=== PATIENT | male | born 1935 | race Caucasian/White ===

== ENCOUNTER 2016-11-26 07:51 | Observation (INO) | payer OTHER ==
[~2016-11-26] VITALS: Ht 175.3 cm; Wt 68.4 kg
[2016-11-26 08:29] LABS: BASOPHIL COUNT 0.1 K/uL (0-0.1); EOSINOPHIL (%) 4.9 % (0-5); EOSINOPHIL COUNT 0.4 K/uL (0-0.3); HEMATOCRIT 44.1 % (38.0-50.0); IMMATURE GRANULOCYTE (%) 0.3 % (0.0-0.7); INSTRUMENT ABS NEUTROPHIL CT 4.3 K/uL; LYMPHOCYTE COUNT 2.1 K/uL (1.0-2.8); MCH 32.2 PG (29.0-34.0); MCHC 33.1 G/DL (30.0-36.0); MCV 97.1 FL (86-99); MEAN PLAT.VOLUME 9.4 uM^3 (9.0-12.4); MONOCYTE (%) 7.6 % (3-12); MONOCYTE COUNT 0.6 K/uL (0-0.8); NEUTROPHIL (%) 58.5 % (45-76); NEUTROPHIL COUNT 4.3 K/uL (1.8-6.4); PLATELET COUNT 198 K/uL (156-360); RBC DIS.WIDTH-CV 12.5 % (11.8-14.6); RBC DIS.WIDTH-SD 44.9 % (39-53); RED BLOOD COUNT 4.54 M/uL (4.00-5.50); WHITE BLOOD COUNT 7.4 K/uL (4.1-10.2)
[2016-11-26] MEDS ORDERED: SINEMET 25-1001 EACH PO (08:39)
[2016-11-26] MEDS ORDERED: MULTI-DAY VITA1 EACH PO (08:40)
[2016-11-26 08:42] LABS: CHLORIDE 109 mEq/L (99-109); POTASSIUM 4.3 mEq/L (3.7-5.4); SODIUM 143 mEq/L (136-147)
[2016-11-26 08:44] LABS: GLUCOSE 95 mg/dL (70-99)
[2016-11-26 08:45] LABS: ANION GAP 8 MEQ/L (2-14)
[2016-11-26 08:48] LABS: GFR ESTIMATE (CALCULATED) > 59 mL/min/
[2016-11-26 08:49] LABS: UREA NITROGEN (BUN) 16 mg/dL (9-23)
[2016-11-26 08:55] LABS: TROP-I INTERPRETATION NEGATIVE; TROPONIN-I < 0.01 ng/mL (0.0-0.30)
[2016-11-26 11:20] VITALS: BP 137/71
[2016-11-26 15:22] LABS: TROP-I INTERPRETATION NEGATIVE; TROPONIN-I < 0.01 ng/mL (0.0-0.30)
[2016-11-26 16:09] VITALS: BP 132/64
[2016-11-26 19:43] VITALS: BP 115/58
[2016-11-26 19:50] VITALS: BP 144/60
[2016-11-26 19:51] VITALS: BP 116/59
[2016-11-26 22:00] LABS: TROP-I INTERPRETATION NEGATIVE; TROPONIN-I < 0.01 ng/mL (0.0-0.30)
[2016-11-27] VITALS: BP 113/60
[2016-11-27 04:00] VITALS: BP 128/60
[2016-11-27 05:57] LABS: ALKALINE PHOSPHATASE 51 IU/L (3-129); ANION GAP 6 MEQ/L (2-14); CHLORIDE 107 MEQ/L (99-109); DIRECT BILIRUBIN 0.2 mg/dL (0.0-0.3); GFR ESTIMATE (CALCULATED) > 59 mL/min/; GLUCOSE 85 mg/dL (70-99); POTASSIUM 3.8 MEQ/L (3.7-5.4); SAMPLE HEMOLYSIS CHECK 0; SAMPLE ICTERIC CHECK 0; SAMPLE LIPEMIA CHECK 0; SODIUM 137 MEQ/L (136-147); TOTAL BILIRUBIN 1.2 MG/DL (0.0-1.0); UREA NITROGEN (BUN) 18 mg/dL (9-23)
[2016-11-27 06:20] LABS: BASOPHIL COUNT 0.1 K/uL (0-0.1); EOSINOPHIL (%) 5.9 % (0-5); EOSINOPHIL COUNT 0.4 K/uL (0-0.3); HEMATOCRIT 38.2 % (38.0-50.0); IMMATURE GRANULOCYTE (%) 0.2 % (0.0-0.7); INSTRUMENT ABS NEUTROPHIL CT 2.6 K/uL; LYMPHOCYTE COUNT 2.8 K/uL (1.0-2.8); MCH 31.6 PG (29.0-34.0); MCHC 32.2 G/DL (30.0-36.0); MCV 98.2 FL (86-99); MEAN PLAT.VOLUME 10.1 uM^3 (9.0-12.4); MONOCYTE (%) 9.5 % (3-12); MONOCYTE COUNT 0.6 K/uL (0-0.8); NEUTROPHIL (%) 39.7 % (45-76); NEUTROPHIL COUNT 2.6 K/uL (1.8-6.4); PLATELET COUNT 179 K/uL (156-360); RBC DIS.WIDTH-CV 12.6 % (11.8-14.6); RED BLOOD COUNT 3.89 M/uL (4.00-5.50); WHITE BLOOD COUNT 6.4 K/uL (4.1-10.2)
[2016-11-27 08:22] VITALS: BP 142/66
[2016-11-27 11:48] VITALS: BP 171/72
[2016-11-27] MEDS ORDERED: LO-DOSE ASPIRIN81 M2 PO (12:50)
== END 2016-11-27 13:49 | disposition home or self-care (01) ==
LOC: EME 07:51 → EDOF 10:11 → 5WEST 11:16
PROVIDERS: Emergency Medicine; Nurse Practitioner Adult Health
DX: R55 Syncope and collapse (principal); R00.1 Bradycardia, unspecified; R42 Dizziness and giddiness; Z87.891 Personal history of nicotine dependence; J45.909 Unspecified asthma, uncomplicated; I48.0 Paroxysmal atrial fibrillation; Z79.01 Long term (current) use of anticoagulants; G20 Parkinson's disease
CPT/HCPCS: 70450; 71010; 80048; 80076; 84484; 85025; 93005; 99281; 99285; G0378; J1644; J7030; J7040

== ENCOUNTER 2017-01-20 10:11 | Day surgery (SDC) | payer OTHER ==
[~2017-01-20] VITALS: Ht 175.3 cm; Wt 68.0 kg
[~2017-01-20 10:11] MED LIST: LO-DOSE ASPIRIN81 M2 PO; MULTI-DAY VITA1 EACH PO; SINEMET 25-1001 EACH PO
== END 2017-01-20 17:40 | disposition home or self-care (01) ==
LOC: CATH 10:11
PROC: 4A023FZ Measurement of Cardiac Rhythm, Percutaneous Approach (ICD-10-PCS; principal; 2017-01-20)
PROC: 4A0234Z Measurement of Cardiac Electrical Activity, Percutaneous Approach (ICD-10-PCS; principal; 2017-01-20)
DX: I44.0 Atrioventricular block, first degree (principal); R55 Syncope and collapse; I44.1 Atrioventricular block, second degree; I34.0 Nonrheumatic mitral (valve) insufficiency; I71.2 Thoracic aortic aneurysm, without rupture; Z79.82 Long term (current) use of aspirin; Z87.891 Personal history of nicotine dependence
CPT/HCPCS: C1730; C1766; C1894; J1200; J2250; J3010; S0020

== ENCOUNTER 2017-11-22 20:28 | Emergency (ER) | payer OTHER ==
[~2017-11-22] VITALS: Ht 175.3 cm; Wt 55.0 kg
[2017-11-22 20:59] LABS: HEMOGLOBIN 13.9 G/DL (12.5-16.6); MCH 32.4 PG (29.0-34.0); MCHC 33.9 G/DL (30.0-36.0); MCV 95.6 FL (86-99); PLATELET COUNT 148 K/uL (156-360); RBC DIS.WIDTH-SD 45.3 % (39-53); RED BLOOD COUNT 4.29 M/uL (4.00-5.50); WHITE BLOOD COUNT 5.7 K/uL (4.1-10.2)
[2017-11-22 21:09] LABS: ALBUMIN 3.7 g/dL (3.2-4.8); CHLORIDE 110 mEq/L (99-109); POTASSIUM 3.8 mEq/L (3.7-5.4); SODIUM 139 mEq/L (136-147)
[2017-11-22 21:11] LABS: GLUCOSE 132 mg/dL (70-99); TOTAL PROTEIN 6.5 g/dL (6.4-8.3)
[2017-11-22 21:13] LABS: TOTAL BILIRUBIN 1.2 mg/dL (0.0-1.0)
[2017-11-22 21:15] LABS: ALKALINE PHOSPHATASE 71 IU/L (3-129); CREATININE 1.1 mg/dL (0.6-1.3); GFR ESTIMATE (CALCULATED) > 59 mL/min/ (58.99-99999)
[2017-11-22 21:16] LABS: UREA NITROGEN (BUN) 13 mg/dL (9-23)
[2017-11-22 21:17] LABS: AST (GOT) 17 IU/L (2-34)
[2017-11-22 21:18] LABS: ALT (GPT) < 3 IU/L (3-49)
[2017-11-22 22:52] LABS: LIPASE 14 U/L (1.0-51.0)
[2017-11-22 22:58] LABS: TROP-I INTERPRETATION NEGATIVE; TROPONIN-I < 0.01 ng/mL (0.0-0.30)
[2017-11-23 02:20] LABS: APPEARANCE CLEAR ((CLEAR)); BILIRUBIN NEGATIVE; BLOOD NEGATIVE; COLOR AMBER ((YELLOW)); GLUCOSE (STRIP) NEGATIVE; KETONES 5; LEUKOCYTES NEGATIVE; NITRITE NEGATIVE; PROTEIN (STRIP) 30; SPECIFIC GRAVITY 1.027 (1.000-1.030); UCUL ADDED? NO
[2017-11-23 03:47] VITALS: BP 122/52
[2017-11-23] MEDS ORDERED: ACETAMINOPHEN650 M6 PO (17:31)
== END 2017-11-23 03:48 | disposition home or self-care (01) ==
LOC: EME → EDBD 20:28 → EME 20:28
DX: R53.1 Weakness (principal); R50.9 Fever, unspecified; G20 Parkinson's disease; J45.909 Unspecified asthma, uncomplicated; Z87.891 Personal history of nicotine dependence; Z85.9 Personal history of malignant neoplasm, unspecified
CPT/HCPCS: 70450; 71046; 80053; 81003; 83605; 83690; 84484; 85027; 87040; 99281; 99285

== ENCOUNTER 2017-11-23 12:05 | Emergency (ER) | payer OTHER ==
[~2017-11-23] VITALS: Ht 180.3 cm; Wt 73.1 kg
[2017-11-23 12:45] LABS: BASOPHIL (%) 0.2 % (0-1); EOSINOPHIL (%) 0 % (0-5); HEMATOCRIT 41.4 % (38.0-50.0); IMMATURE GRANULOCYTE (%) 0.3 % (0.0-0.7); LYMPHOCYTE (%) 9.4 % (15-42); LYMPHOCYTE COUNT 0.6 K/uL (1.0-2.8); MCH 32.6 PG (29.0-34.0); MCHC 33.8 G/DL (30.0-36.0); MCV 96.5 FL (86-99); MONOCYTE (%) 11.5 % (3-12); MONOCYTE COUNT 0.7 K/uL (0-0.8); NEUTROPHIL (%) 78.6 % (45-76); NEUTROPHIL COUNT 4.9 K/uL (1.8-6.4); PLATELET COUNT 141 K/uL (156-360); RBC DIS.WIDTH-SD 46.3 % (39-53); RED BLOOD COUNT 4.29 M/uL (4.00-5.50); WHITE BLOOD COUNT 6.3 K/uL (4.1-10.2)
[2017-11-23 12:56] LABS: APPEARANCE CLEAR ((CLEAR)); BILIRUBIN NEGATIVE; BLOOD NEGATIVE; COLOR YELLOW ((YELLOW)); GLUCOSE (STRIP) NEGATIVE; KETONES 5; LEUKOCYTES NEGATIVE; NITRITE NEGATIVE; PROTEIN (STRIP) NEGATIVE; SPECIFIC GRAVITY 1.024 (1.000-1.030); UCUL ADDED? NO
[2017-11-23 13:08] LABS: INTER. NORMALIZED RATIO 1.1
[2017-11-23 13:11] LABS: PTT 32.4 SEC (25-37)
[2017-11-23 13:16] LABS: TROP-I INTERPRETATION NEGATIVE; TROPONIN-I < 0.01 ng/mL (0.0-0.30)
[2017-11-23] MEDS ORDERED: ACETAMINOPHEN650 M6 PO (17:31)
[2017-11-23 19:55] VITALS: BP 157/87
== END 2017-11-23 19:56 | disposition home or self-care (01) ==
LOC: EME 12:05
PROVIDERS: Emergency Medicine
DX: R50.9 Fever, unspecified (principal); G20 Parkinson's disease; J45.909 Unspecified asthma, uncomplicated; Z87.891 Personal history of nicotine dependence
CPT/HCPCS: 71045; 81003; 83605; 84484; 85025; 85610; 85730; 87040; 93005; 99281; 99285